=== PATIENT | male | born 1945 | race Caucasian/White ===

== ENCOUNTER 2016-08-04 15:30 | Emergency (ER) | payer MEDICARE, OTHER ==
[2016-08-04 16:02] LABS: RED BLOOD COUNT 4.75 M/UL (4.20-5.50); WHITE BLOOD COUNT 16.1 K/UL (4.5-11.0)
[2016-08-04 17:48] LABS: HEMOGLOBIN 12.3 gm/dl (14.0-17.5)
== END 2016-08-04 19:05 ==
LOC: ER1 15:30 → ZEROF 17:45 → ER1 19:05
PROVIDERS: Emergency Medicine
DX: K92.2 Gastrointestinal hemorrhage, unspecified (principal); N17.9 Acute kidney failure, unspecified; I95.9 Hypotension, unspecified; E11.65 Type 2 diabetes mellitus with hyperglycemia; D64.9 Anemia, unspecified; Z90.49 Acquired absence of other specified parts of digestive tract; Z79.4 Long term (current) use of insulin; Z79.899 Other long term (current) drug therapy
CPT/HCPCS: 36415; 36430; 71010; 80053; 82009; 82550; 82553; 83605; 83874; 84484; 85014; 85018; 85025; 85610; 85730; 86850; 86900; 86901; 86920; 87040; 93005; 96361; 96374; 96375; 99291; C9113; J1335; J2405; J7030; J7050; P9016